=== PATIENT | male | born 1945 | race Caucasian/White ===

== ENCOUNTER 2020-08-07 08:17 | Inpatient (IN) | payer MEDICARE ==
[2020-08-06 09:06] VITALS: BMI 24.3
[2020-08-07] MEDS ORDERED: Ketorolac Tromethamine 30 MG/ML VIAL ONE (09:24)
[2020-08-07] MEDS ORDERED: Acetaminophen 500 MG TAB ONE (09:24)
[2020-08-07] MEDS ORDERED: Vancomycin 1 GM/200 ML BAG ONE (09:25)
[2020-08-07] MEDS ORDERED: Cefepime 2 GM in Sodium Chloride 0.9% 100 ML IVPB SCH (09:45)
[2020-08-07] MEDS ORDERED: Fentanyl 100 MCG/2 ML VIAL ONE (10:55)
[2020-08-07] MEDS ORDERED: hydrALAZINE 20 MG/ML VIAL SLOW IVP PRN (11:26)
[2020-08-07] MEDS ORDERED: HumaLOG 300 UNITS/3 ML VIAL SC PRN ×2 (11:26→21:23)
[2020-08-07] MEDS ORDERED: Dextrose 50% Abboject 50 ML SYRINGE SLOW IVP PRN (11:26)
[2020-08-07] MEDS ORDERED: Dextrose 5% in Water 1,000 ML IV PRN (11:26)
[2020-08-07] MEDS ORDERED: Acetaminophen 500 MG TAB PO PRN (11:35)
[2020-08-07] MEDS ORDERED: guaiFENesin 200 MG TAB PO PRN (11:57)
[2020-08-07] MEDS: Furosemide 20 MG TAB PO SCH (16:30)
[2020-08-07] MEDS: Carvedilol 3.125 MG TAB PO SCH (16:31)
[2020-08-07] MEDS ORDERED: Vancomycin 1 GM in Premix Bag 1 BAG IVPB SCH (21:00)
[2020-08-07 21:58] LABS: #Eosinphils 0.2 thou/uL (0.0-0.7); #Lymphocytes 1.4 thou/uL (1.20-3.40); #Monocytes 0.8 thou/uL (0.11-0.59); #Neutrophils 9.5 thou/uL (1.40-6.50); %Basophils 0.1 % (0.0-1.0); %Eosinophils 1.3 % (0.0-10.0); %Lymphocytes 11.8 % (21.0-51.0); %Monocytes 6.6 % (0.0-10.0); %Neutrophils 80.1 % (42.0-75.0); Hemoglobin 11.4 g/dL (14.0-18.0); Mean Corpuscular HGB CONC 30.3 g/dL (32.0-36.0); Mean Corpuscular Hemoglobin 30.4 pg (27.0-31.0); Mean Platelet Volume 7.9 fL (7.4-10.4); Platelet Count 358 thou/uL (130-400); RBC Distribution Width 13.4 % (11.5-14.5); Red Blood Cell (RBC) Count 3.76 mill/uL (4.70-6.10); White Blood Cell (WBC) Count 11.8 thou/uL (4.8-10.8)
[2020-08-07] MEDS: Enoxaparin Sodium 40 MG/0.4 ML SYRINGE SC SCH (22:05)
[2020-08-07] MEDS: Famotidine 20 MG TAB PO SCH (22:05)
[2020-08-07] MEDS: Simvastatin 10 MG TAB PO SCH (22:05)
[2020-08-07 22:11] LABS: ALT (SGPT) 22 U/L (8-55); AST (SGOT) 25 U/L (5-34); Alkaline Phosphatase 173 U/L (40-110); Anion Gap 12 mmol/L (10-20); BUN (Urea Nitrogen) 29 mg/dL (8.4-25.7); Bilirubin, Total 0.7 mg/dL (0.2-1.2); Calc. Creatinine Clearance 93 mL/min (70-130); Calcium 7.8 mg/dL (7.8-10.44); Carbon Dioxide 35 mmol/L (23-31); Chloride 99 mmol/L (98-107); Globulin 3.4 g/dL (2.4-3.5); Glucose 171 mg/dL (83-110); Magnesium 1.7 mg/dL (1.6-2.6); Potassium 4.4 mmol/L (3.5-5.1); Protein, Total 5.4 g/dL (5.8-8.1); Sodium 142 mmol/L (136-145)
[2020-08-07] MEDS: Cefepime 2 GM in Sodium Chloride 0.9% 100 ML IVPB SCH (22:30)
[2020-08-07 23:53] LABS: SARS-CoV-2 PCR by NAA Not Detected (NotDetected)
[2020-08-08] MEDS: VANCOMYCIN 1.25 GM/250 ML BAG 1.25 GM in Premix Bag 1 BAG IVPB SCH ×2 (00:20→11:18)
[2020-08-08] MEDS: traMADol HCl 50 MG TAB PO PRN (01:59)
[2020-08-08 05:12] LABS: #Eosinphils 0.2 thou/uL (0.0-0.7); #Lymphocytes 1.2 thou/uL (1.20-3.40); #Monocytes 0.9 thou/uL (0.11-0.59); #Neutrophils 10.1 thou/uL (1.40-6.50); %Basophils 0.1 % (0.0-1.0); %Eosinophils 1.4 % (0.0-10.0); %Lymphocytes 9.9 % (21.0-51.0); %Monocytes 6.9 % (0.0-10.0); %Neutrophils 81.7 % (42.0-75.0); Hemoglobin 12.6 g/dL (14.0-18.0); Mean Corpuscular HGB CONC 29.8 g/dL (32.0-36.0); Mean Corpuscular Hemoglobin 29.7 pg (27.0-31.0); Mean Corpuscular Volume 99.5 fL (78.0-98.0); Platelet Count 385 thou/uL (130-400); RBC Distribution Width 13.3 % (11.5-14.5); Red Blood Cell (RBC) Count 4.26 mill/uL (4.70-6.10); White Blood Cell (WBC) Count 12.3 thou/uL (4.8-10.8)
[2020-08-08 05:32] LABS: Anion Gap 14 mmol/L (10-20); BUN (Urea Nitrogen) 30 mg/dL (8.4-25.7); Calc. Creatinine Clearance 95 mL/min (70-130); Calcium 8.1 mg/dL (7.8-10.44); Carbon Dioxide 30 mmol/L (23-31); Chloride 99 mmol/L (98-107); Glucose 172 mg/dL (83-110); Magnesium 1.8 mg/dL (1.6-2.6); Potassium 4.5 mmol/L (3.5-5.1); Sodium 138 mmol/L (136-145)
[2020-08-08] MEDS: HumaLOG 300 UNITS/3 ML VIAL SC PRN (05:41)
[2020-08-08] MEDS: Famotidine 20 MG TAB PO SCH ×2 (07:59→21:13)
[2020-08-08] MEDS: Lisinopril 2.5 MG TAB PO SCH (07:59)
[2020-08-08] MEDS: Furosemide 20 MG TAB PO SCH ×2 (08:00→15:00)
[2020-08-08] MEDS: Carvedilol 3.125 MG TAB PO SCH ×2 (08:00→17:52)
[2020-08-08] MEDS: Aspirin 81 mg Enteric Coated Tablet PO SCH (08:00)
[2020-08-08] MEDS: Potassium Chloride 10 MEQ TAB PO SCH (08:00)
[2020-08-08] MEDS: Multivitamin W/ Minerals 1 TAB PO SCH (08:00)
[2020-08-08] MEDS ORDERED: glipiZIDE 5 MG TAB PO SCH (09:00)
[2020-08-08] MEDS ORDERED: FLU VACC QS2020-21(65YR UP)/PF 240 MCG/0.7 ML SYRINGE IM ONE (09:00)
[2020-08-08] MEDS: Cefepime 2 GM in Sodium Chloride 0.9% 100 ML IVPB SCH ×2 (10:21→21:19)
[2020-08-08] MEDS ORDERED: Magnesium 2 GM/50 ML 2 GM in Premix Bag 1 BAG IVPB SCH (12:15)
[2020-08-08] MEDS: Enoxaparin Sodium 40 MG/0.4 ML SYRINGE SC SCH (21:13)
[2020-08-08] MEDS: Simvastatin 10 MG TAB PO SCH (21:13)
[2020-08-08 22:25] LABS: Vancomycin, Trough 22.6 ug/mL
[2020-08-08] MEDS: Vancomycin 1 GM in Premix Bag 1 BAG IVPB SCH (23:12)
[2020-08-09] MEDS: HumaLOG 300 UNITS/3 ML VIAL SC PRN ×2 (06:29→15:57)
[2020-08-09] MEDS: Aspirin 81 mg Enteric Coated Tablet PO SCH (07:59)
[2020-08-09] MEDS: Lisinopril 2.5 MG TAB PO SCH (07:59)
[2020-08-09] MEDS: Famotidine 20 MG TAB PO SCH ×3 (07:59→22:11)
[2020-08-09] MEDS: Furosemide 20 MG TAB PO SCH ×2 (08:00→13:58)
[2020-08-09] MEDS: Carvedilol 3.125 MG TAB PO SCH ×2 (08:00→18:30)
[2020-08-09] MEDS: Multivitamin W/ Minerals 1 TAB PO SCH (08:00)
[2020-08-09] MEDS: Potassium Chloride 10 MEQ TAB PO SCH (08:00)
[2020-08-09] MEDS: Cefepime 2 GM in Sodium Chloride 0.9% 100 ML IVPB SCH ×2 (10:55→22:03)
[2020-08-09] MEDS: Vancomycin 1 GM in Premix Bag 1 BAG IVPB SCH ×2 (11:39→23:37)
[2020-08-09] MEDS: traMADol HCl 50 MG TAB PO PRN (13:57)
[2020-08-09] MEDS: Enoxaparin Sodium 40 MG/0.4 ML SYRINGE SC SCH (22:04)
[2020-08-09] MEDS: Simvastatin 10 MG TAB PO SCH ×2 (22:04→22:11)
[2020-08-09] MEDS: Sodium Chloride 0.9% 1,000 ML IV SCH (23:40)
[2020-08-10 05:25] LABS: #Lymphocytes 1.2 thou/uL (1.20-3.40); #Monocytes 0.9 thou/uL (0.11-0.59); #Neutrophils 12.1 thou/uL (1.40-6.50); %Basophils 0.2 % (0.0-1.0); %Eosinophils 0.2 % (0.0-10.0); %Lymphocytes 8.1 % (21.0-51.0); %Neutrophils 85.5 % (42.0-75.0); Mean Corpuscular HGB CONC 30.9 g/dL (32.0-36.0); Mean Corpuscular Hemoglobin 30.7 pg (27.0-31.0); Mean Corpuscular Volume 99.3 fL (78.0-98.0); Mean Platelet Volume 7.6 fL (7.4-10.4); Platelet Count 387 thou/uL (130-400); RBC Distribution Width 13.5 % (11.5-14.5); Red Blood Cell (RBC) Count 3.92 mill/uL (4.70-6.10); White Blood Cell (WBC) Count 14.2 thou/uL (4.8-10.8)
[2020-08-10 05:42] LABS: Phosphorus 4.4 mg/dL (2.3-4.7)
[2020-08-10 05:45] LABS: Anion Gap 11 mmol/L (10-20); BUN (Urea Nitrogen) 38 mg/dL (8.4-25.7); Calc. Creatinine Clearance 72 mL/min (70-130); Calcium 7.7 mg/dL (7.8-10.44); Carbon Dioxide 33 mmol/L (23-31); Chloride 101 mmol/L (98-107); Glucose 142 mg/dL (83-110); Magnesium 2.2 mg/dL (1.6-2.6); Potassium 4.2 mmol/L (3.5-5.1); Sodium 141 mmol/L (136-145)
[2020-08-10] MEDS ORDERED: Fentanyl 100 MCG/2 ML VIAL ONE (06:22)
[2020-08-10] MEDS ORDERED: Sulfameth/Trimethoprim DS 800-160mg TAB PO SCH (09:00)
[2020-08-10] MEDS: Sodium Chloride 0.9% 1,000 ML IV SCH (09:22)
[2020-08-10] MEDS: Potassium Chloride 10 MEQ TAB PO SCH (09:36)
[2020-08-10] MEDS: Carvedilol 3.125 MG TAB PO SCH ×2 (09:36→19:11)
[2020-08-10] MEDS: Multivitamin W/ Minerals 1 TAB PO SCH (09:37)
[2020-08-10] MEDS: Aspirin 81 mg Enteric Coated Tablet PO SCH (09:37)
[2020-08-10] MEDS: Lisinopril 2.5 MG TAB PO SCH (09:37)
[2020-08-10] MEDS: Famotidine 20 MG TAB PO SCH (09:37)
[2020-08-10] MEDS: traMADol HCl 50 MG TAB PO PRN (10:29)
[2020-08-10 16:28] VITALS: BP 95/59
[2020-08-10 19:59] VITALS: TEMP 97.8
[2020-08-10] MEDS ORDERED: Ciprofloxacin 500 MG TAB PO SCH (20:00)
== END 2020-08-10 20:54 | disposition hospice, inpatient (51) | DRG 564 ==
LOC: SDC 08:17 → SJJU 14:05
PROVIDERS: ADMIT Specialist; ATTEND Internal Medicine
DX: T87.44 Infection of amputation stump, left lower extremity (principal); I50.23 Acute on chronic systolic (congestive) heart failure; Z20.822 Contact with and (suspected) exposure to COVID-19; Z66 Do not resuscitate; Z51.5 Encounter for palliative care; L89.153 Pressure ulcer of sacral region, stage 3; L89.624 Pressure ulcer of left heel, stage 4; I48.20 Chronic atrial fibrillation, unspecified; E46 Unspecified protein-calorie malnutrition; L03.116 Cellulitis of left lower limb; I25.5 Ischemic cardiomyopathy; L89.629 Pressure ulcer of left heel, unspecified stage; I11.0 Hypertensive heart disease with heart failure; H54.7 Unspecified visual loss; E78.5 Hyperlipidemia, unspecified; L97.519 Non-pressure chronic ulcer of other part of right foot with unspecified severity; G89.29 Other chronic pain; M54.9 Dorsalgia, unspecified; E11.40 Type 2 diabetes mellitus with diabetic neuropathy, unspecified; E11.51 Type 2 diabetes mellitus with diabetic peripheral angiopathy without gangrene; E11.621 Type 2 diabetes mellitus with foot ulcer; R13.10 Dysphagia, unspecified; Z68.24 Body mass index [BMI] 24.0-24.9, adult; Z89.421 Acquired absence of other right toe(s); Z79.82 Long term (current) use of aspirin; Z79.899 Other long term (current) drug therapy; Z79.01 Long term (current) use of anticoagulants; Z79.84 Long term (current) use of oral hypoglycemic drugs; Z95.810 Presence of automatic (implantable) cardiac defibrillator
CPT/HCPCS: 36415; 36416; 80048; 80053; 80202; 83735; 84100; 85025; 87635; 93005; 93010; J0692; J1650; J1815; J1885; J3010; J3370; J3475; J3490; U0003; U0005